=== PATIENT | female | born 1940 | race Caucasian/White ===

== ENCOUNTER 2018-07-27 22:58 | Observation (INO) ==
[2018-07-28] MEDS ORDERED: Naloxone 0.4 MG/ML INJ IVP PRN (02:43)
[2018-07-28] MEDS ORDERED: Acetaminophen 325 MG TABLET PO PRN (02:43)
[2018-07-28] MEDS ORDERED: Ondansetron 4 MG/2 ML VIAL IVP PRN (02:43)
[2018-07-28] MEDS ORDERED: Ipratropium/Albuterol Neb 3 ML IH PRN (02:43)
--- NOTE | 2018-07-28 02:53 | Internal Med History&Physical ---
Date of Encounter: 07/28/18 Time of Encounter: 02:15 Internal Medicine - H&P: HPI Chief complaint: chest pain; fever; cough Admitted From: Hospital to Hospital Transfer Plans for Post Hospital Care: Home History of present illness: Ms. Naik is a 78 year old female who presents in transfer from [facility]. She presented there earlier tonight with complaints of left-sided shoulder pain, chest pain, fever, and cough. Symptoms started 2 days ago and she was hopeful that they would resolve. However, because they persisted and worsened, she went to the ER. She was noted to have evidence of what appeared to be right lower lobe and right upper lobe pneumonia. She had an elevated white blood cell count. She had blood cultures drawn and was started on antibiotics. They then requested transfer to [facility] [place]. Upon my assessment of the patient, patient has no further pain, has mild cough, and no fever now. She denies any productive sputum. She has had some shortness of breath. She has had some fatigue. She has had some nausea and vomiting as well. Patient states her appetite and fluid intake have been poor. She denies any known ill contacts. She is a nonsmoker and denies any history of COPD. Past Med Surg Social Fam HX - Past Medical History Attestation: Yes The following information was validated with the patient. Source: patient, obtained from family, other (limited [facility] records) Medical history: cancer, renal disease Psychiatric history: anxiety, panic disorder - Past Surgical History Surgical History: breast surgery Additional surgical history: 1983 breast surgery -- bilateral mastectomy - Social History Smoking Status: Never smoker Alcohol use: none Drug use: none Current living situation: Home, With Family Activity Level: Independent ambulation Recent Out of Country Travel Within the Last 8 Weeks: No - Family History Mother Living Status: Hx Family Respiratory Disorders: No Father History Unknown: Yes Living Status: Internal Medicine - H&P: Meds Allergy/AdvReac Type Severity Reaction Status Date / Time lisinopril Allergy See Verified 03/16/18 12:32 Comments Sulfa (Sulfonamide Allergy See Verified 03/16/18 12:32 Antibiotics) Comments - Constitutional Constitutional: fatigue, fever(s), no chills, no night sweats - EENT Eyes: no blurry vision, no change in vision Ears: no ear pain, no tinnitus Nose, mouth and throat: no nasal congestion, no sinus pressure, no sore throat - Cardiovascular Cardiovascular ROS IM: chest pain, dyspnea, dyspnea on exertion, no lightheadedness, no orthopnea, no paroxysmal nocturnal dyspnea, no syncope - Respiratory Respiratory: cough, chest congestion, pain with cough, no hemoptysis, no wheezing, no pain on inspiration, no excessive phlegm production, no change in phlegm color - Gastrointestinal Gastrointestinal: nausea, vomiting, no abdominal pain, no diarrhea, no hematemesis, no hematochezia, no melena - Genitourinary Genitourinary: no dysuria, no flank pain, no hematuria - Musculoskeletal Musculoskeletal ROS IM: no arthralgias, no back pain - Integumentary Integumentary IM: no rash, no jaundice - Neurological Neurological ROS: no dizziness, no focal weakness, no frequent falls, no headache(s) - Psychiatric Psychiatric: no anxiety, no depression - Endocrine Endocrine IM: no polydipsia, no polyphagia, no polyuria - Allergic/Immunologic Allergic/Immunologic: no GI upset with certain foods - Constitutional Vitals: Temp Pulse Resp BP Pulse Ox 98.3 F 62 15 110/57 93 07/28/18 00:54 07/28/18 00:54 07/28/18 00:54 07/28/18 00:54 07/28/18 00:54 General appearance: Present: cooperative, A&O X 3, pleasant, no acute distress, answers questions appropriately Exam: appears mildly dry; otherwise NAD - Head Head exam: Present: atraumatic, normal inspection - Eye Eye exam: Present: EOMI, PERRL. Absent: scleral icterus Pupils: Present: normal accommodation - ENT ENT exam: Present: mucous membranes dry, normal exam, normal oropharynx - Neck Neck exam general surgery: Present: full ROM, supple, trachea midline. Absent: lymphadenopathy, tenderness, nuchal rigidity, thyromegaly - Respiratory Respiratory exam: Present: CTAB. Absent: chest wall tenderness, rales, respiratory distress, rhonchi, wheezes Additional comments: mild splinting with deep inspiration - Cardiovascular Cardiovascular exam: Present: distant heart sounds, +S1, +S2. Absent: diastolic murmur, systolic murmur - GI/Abdominal GI/Abdominal exam: Present: normal bowel sounds, soft. Absent: guarding, hepatomegaly, mass, rebound, splenomegaly, tenderness - Extremities Exam Extremities exam: Present: full ROM, normal capillary refill, normal inspection, warm, radial pulses palpable and symmetrical. Absent: calf tenderness, pedal edema, tenderness - Back Exam Back exam: Present: normal inspection. Absent: CVA tenderness (L), CVA tenderness (R) - Neurological Exam Neurological exam: Present: alert, CN II-XII intact, oriented X3, no focal deficits, strengths equal and symetr throughout. Absent: motor sensory deficit - Psychiatric Psychiatric exam: Present: normal affect, normal mood - Skin Skin exam: Present: dry, intact, warm Internal Med - H&P Results - Labs Labs: I reviewed the labs from [facility] and include the following: Influenza A and Bnegative WBC 12.0 Hemoglobin 11.4 Hematocrit 35.1 Platelets 251 Sodium 130 Potassium 3.8 Chloride 94 CO2 21 Bun 15 [id number] Creatinine 1.32 - EKG Data -: EKG Interpreted by Myself - EKG Data Prior EKG available for review: no EKG comments: 07/28/18 03:02 NSR; mild lateral ischemic changes - Diagnostic Studies Chest x-ray Status: image reviewed by me (RUL and RLL infiltrate) - Assessment and Plan (1) Pneumonia involving right lung Current Visit: Yes Status: Acute Assessment and plan: 1. Will order blood and sputum cultures. 2. Will continue Rocephin and Zithromax as initiated at [facility]. 3. Will order oxygen as needed and aerosols PRN. Qualifiers: Pneumonia type: due to unspecified organism Lung location: lower lobe of lung Qualified Code(s): J18.1 - Lobar pneumonia, unspecified organism (2) Chest pain Current Visit: Yes Status: Acute Assessment and plan: 1. EKG from [facility] suggests lateral wall ischemia. Patient is now chest pain free. 2. Will trend troponins and EKg's. 3. Will order ECHO. 4. Will order SL NT and IV Morphine PRN for chest pain. Qualifiers: Chest pain type: precordial pain Qualified Code(s): R07.2 - Precordial pain (3) Dehydration Current Visit: Yes Status: Acute Assessment and plan: 1. IVF hydration. 2. Oral hydration as tolerated. 3. Monitor I/O closely. (4) DVT prophylaxis Current Visit: Yes Status: Acute Assessment and plan: 1. Heparin SQ.
[2018-07-28] MEDS ORDERED: Nitroglycerin 0.4 MG TAB.SUBL SL PRN (03:02)
[2018-07-28] MEDS ORDERED: *HR* Morphine 2 MG/ML SYRINGE IVP PRN (03:02)
[2018-07-28 04:29] LABS: Basophils % 0.3 %; Hemoglobin 10.4 g/dL (11.5-15.4); Immature Granulocytes % 0.9 % (0-4); Lymphocytes # 1.3 K/mcL (0.6-4.6); Lymphocytes % 14.9 %; Mean Corpuscular HGB Conc 31.5 g/dL (31.6-35.5); Mean Corpuscular Hemoglobin 26.2 pg (28.0-33.3); Mean Corpuscular Volume 83.1 fL (83.0-100.0); Mean Platelet Volume 10.4 fL (9.4-12.4); Monocytes # 1.2 K/mcL (0.0-1.3); Monocytes % 12.9 %; Neutrophils # 6.4 K/mcL (1.6-8.9); Platelet Count 221 K/mcL (140-400); Red Blood Count 3.97 M/mcL (3.82-4.97); Red Cell Distribution Width 13.9 % (11.5-14.5)
[2018-07-28 04:37] LABS: INR 1.2
[2018-07-28 04:40] LABS: Activated Partial Thrombo Time 29.7 Seconds (26.0-36.0)
[2018-07-28 04:50] LABS: Alanine Aminotransferase 10 Units/L (7-52); Albumin 3.5 g/dL (3.5-5.7); Albumin/Globulin Ratio 1.3 (1.1-2.2); Alkaline Phosphatase 87 Units/L (34-104); Aspartate Amino Transferase 17 Units/L (13-39); BUN/Creatinine Ratio 14 (6-26); Bilirubin,Total 0.5 mg/dL (0.3-1.0); Blood Urea Nitrogen 13 mg/dL (8-23); Calcium 8.6 mg/dL (8.6-10.3); Carbon Dioxide 24 mEq/L (23-29); Chloride 101 mEq/L (98-107); Globulin 2.8 g/dL (2.4-3.5); Glucose 115 mg/dL (70-105); Osmolality,Calculated 277 (280-300); Potassium 3.6 mEq/L (3.5-5.1); Sodium 133 mEq/L (136-145); Total Protein 6.3 g/dL (6.4-8.9); eGFR For Non-African Americans 58 (> 60)
[2018-07-28] MEDS: 0.9 % Sodium Chloride 1,000 ML IVC SCH ×2 (06:11→18:02)
--- NOTE | 2018-07-28 09:38 | Event Note ---
Date of Encounter: 07/28/18 Time of Encounter: 09:37 Patient seen and examined this morning at baseline. No acute overnight events. Denies any chest pain. Headache. Denies any difficulty breathing. Low-grade fever. Denies any diarrhea but had loose bowel movement Cathie. Exam General: In no acute distress. some coughing Respiratory exam: CTAB. no accessory muscle use, rales, rhonchi, wheezes Cardiovascular exam: RRR, +S1, +S2. no murmur, gallop, rubs. GI/Abdominal exam: Non-tender, Non-distended, normal bowel sounds, soft, no peritoneal signs. Extremities exam: no pedal edema, pulses palpable in b/l lower extremities. no calf tenderness Neurological exam: CN II-XII intact, AO X3, no focal deficits. Skin exam: No skin rash Assessment Pneumonia Chest pain CORBIN DVT prophylaxis Plan - Continue empiric Rocephin and Zithromax, bronchodilators. Follow sputum cultures - Trend troponin, follow-up echo may plan for stress tests if negative. - Continue IV fluids and subcutaneous heparin
[2018-07-28] MEDS: cefTRIAXone 2,000 MG in Water for inj. (sterile) 20 ML 20 ML IVP SCH (09:39)
[2018-07-28] MEDS: Aspirin 81 MG TAB.CHEW PO SCH (09:39)
[2018-07-28] MEDS: Azithromycin 500 MG in D5% in Water 250 ML IVPB SCH (09:39)
--- NOTE | 2018-07-28 09:40 | Electrocardiograph Report ---
[place] [id number] Test Date: 2018-07-28 Pat Name: Marly Naik Department: 115 Room: 3A33 Gender: F Senior Training Specialist: : [id number] Requested By: Hadrik Barber Order Number: [id number] Reading MD: Steffi Page Measurements Intervals [place] Rate: 69 P: 6 NH: 110 QRS: 5 QRSD: 90 T: 7 QT: 385 QTc: 404 Interpretive Statements SINUS RHYTHM WITH SINUS ARRHYTHMIA WITH SHORT NH INTERVAL MINIMAL ST DEPRESSION Electronically Signed On 07-28-2018 9:38:29 EDT by Steffi Page
[2018-07-29] MEDS ORDERED: Regadenoson 0.4 MG/5 ML SYRINGE IVP ONE (06:06)
[2018-07-29] MEDS: Aspirin 81 MG TAB.CHEW PO SCH (09:34)
[2018-07-29] MEDS: cefTRIAXone 2,000 MG in Water for inj. (sterile) 20 ML 20 ML IVP SCH (09:34)
[2018-07-29] MEDS: Azithromycin 500 MG in D5% in Water 250 ML IVPB SCH (09:34)
--- NOTE | 2018-07-29 15:30 | Discharge Summary ---
- NOTES TO OUTPATIENT PROVIDER Notes to Outpatient Provider: Patient had a negative stress test. Discharged on oral antibiotics for pneumonia. She has anemia and should undergo colonoscopy of has not done before. Orders not resulted at time of discharge: Pending orders 07/28/18 02:43 Culture,Sputum with Gram Stain [RM] Stat 07/28/18 04:03 Culture,Blood [BC] Stat 07/28/18 17:54 NM home perf SPECT multi [NM] Routine Date of Encounter: 07/29/18 Time of Encounter: 15:28 - Discharge Diagnosis (1) Pneumonia involving right lung Priority: Primary Status: Acute Qualifiers: Pneumonia type: due to unspecified organism Lung location: lower lobe of lung Qualified Code(s): J18.1 - Lobar pneumonia, unspecified organism (2) Chest pain Priority: Primary Status: Acute Qualifiers: Chest pain type: precordial pain Qualified Code(s): R07.2 - Precordial pain (3) Dehydration Priority: Secondary Status: Acute (4) DVT prophylaxis Priority: Secondary Status: Acute Hospital course: Ms. Naik is a 78 year old female with past medical history of bilateral mastectomy came in with the left sided shoulder pain from [facility]ie after she was found to have right lower lobe pneumonia. Patient was started on empiric ceftriaxone and azithromycin for pneumonia. Patient did remain afebrile, blood cultures remained negative. Patient EKG had some concern of mild lateral ischemic changes and given with some left-sided chest pain troponin were obtained which were negative. Patient underwent a stress test which was negative for ischemia. Patient otherwise stable to be discharged home to finish oral antibiotics for 5 more days. Discharge discussed with: patient, nurse - Time Spent with Patient Total time spent providing and/or coordinating discharge services: Time spent: Greater than 30 minutes (38) - Discharge Medications Prescriptions: New Amoxicillin/Clavulanate [Augmentin] 875 mg PO BIDWM 5 Days #10 tablet Continued FLUoxetine HCl [Prozac] 20 mg PO DAILY Home Medications: FLUoxetine HCl [Prozac] 20 mg PO DAILY 07/28/18 [History] Amoxicillin/Clavulanate [Augmentin] 875 mg PO BIDWM 5 Days #10 tablet 07/29/18 [Rx] Allergies/Adverse Reactions: Allergy/AdvReac Type Severity Reaction Status Date / Time Sulfa (Sulfonamide Allergy Hives Verified 07/28/18 14:50 Antibiotics) lisinopril AdvReac Cough Verified 07/28/18 14:50 Date of admission: 07/28/18 00:36 Primary care physician: Kevin Olivares DO Consults: 07/29/18 09:16 Consult to Nurse Navigator [CONS] Routine Comment: pneumonia Discharging clinician: Alesha Yuan - Constitutional Vitals: Temp Pulse Resp BP Pulse Ox 97.7 F 78 16 101/57 98 07/29/18 11:16 07/29/18 11:16 07/29/18 11:16 07/29/18 11:16 07/29/18 11:16 Exam: General: In no acute distress. Respiratory exam: CTAB. no accessory muscle use, rales, rhonchi, wheezes Cardiovascular exam: RRR, +S1, +S2. no murmur, gallop, rubs. GI/Abdominal exam: Non-tender, Non-distended, soft, no peritoneal signs. Extremities exam: no pedal edema, pulses palpable in b/l lower extremities. no calf tenderness Neurological exam: CN II-XII intact, AO X3, no focal deficits. Skin exam: No skin rash - Patient Status Disposition: Home, Self-Care - Discharge Instructions Follow Up With: Kevin Olivares DO [Primary Care Provider] - - Diet and Activity Activity: increase activity as tolerated
[2018-07-29 15:33] VITALS: BP 149/64
== END 2018-07-29 16:42 | disposition home or self-care (01) ==
LOC: 3ANU → SUATTDRO 07-28 00:36
PROVIDERS: ADMIT Family Medicine; ATTEND Internal Medicine